=== PATIENT | female | born 1990 | race Caucasian/White ===

== ENCOUNTER 2025-08-02 14:10 | Emergency (ER) | payer MEDICAID, SELFPAY ==
[2025-08-02 14:12] VITALS: BP 155/88; PULSE 78; RESP 18; TEMP 36.5; O2SAT 99; BMI 33.3
--- NOTE | 2025-08-02 15:09 | RAD_ITS ---
PROCEDURE: TIBIA FIBULA 2 VIEWS 08/02/2025 REASON FOR EXAM: INJURY/PAIN TECHNIQUE: Procedure Code: RADTF Modality: DX Procedure: TIBIA FIBULA 2 VIEWS Laterality: Right COMPARISON: None. FINDINGS: BONES: No acute fracture or focal osseous lesion. JOINTS: No dislocation. The joint spaces are normal. SOFT TISSUES: The soft tissues are unremarkable. RAD/Tibia & Fibula 2 Views IMPRESSION: NEGATIVE TIBIA AND FIBULA. Reading Location: [id number]
--- NOTE | 2025-08-02 15:12 | EDS_ITS ---
HPI History of Present Illness Chief Complaint: Lower Extremity Injury Informant: patient Narrative Narrative: Patient is a 34-year-old female with history of anxiety presenting with pain and bruising to her right lower extremity. She notes it is painful slightly yesterday and has become more painful today especially with trying to walk on it. 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 She denies any injury to her leg so she would not know why she has a bruise. She denies any swelling of her leg. Associate numbness or tingling. Has history of DVT or PE. Denies any shortness of breath or difficulty breathing. Took Tylenol with no relief. Came in for further evaluation. [facility] Medical History Anxiety Home Medications ?Medication ?Instructions ?Recorded ?Last Taken ?Type ibuprofen 600 mg tablet 600 mg PO Q6H PRN PRN pain # 20 08/02/25 Unknown Rx TABLETS Allergy/AdvReac Type Severity Reaction Status Date / Time No Known Allergies Allergy Verified 08/02/25 14:12 Family History Mother Cancer Social History household members: spouse and family current occupational status: employed Smoking Status: Former smoker ROS ROS ED Constitutional Constitutional ED: Denies chills or fever(s) Cardiovascular Cardiovascular: Denies chest pain Respiratory/Chest Respiratory/Chest: Denies dyspnea Musculoskeletal Musculoskeletal: Reports other Details: Right lower anterior arceo pain Integumentary Reports other Details: Bruising and tenderness to the right anterior arceo Neurologic Neurologic: Denies paresthesias or weakness Psychiatric Psychiatric: Reports anxiety Hematologic/Lymphatic Hematologic/Lymphatic: Denies easy bleeding or easy bruising EXAM Physical Exam Const Vital Signs: 08/02/25 14:12 Temperature 97.7 F L Temperature Source Temporal Pulse Rate 78 Respiratory Rate 18 Blood Pressure 155/88 H Blood Pressure Mean 110 Pulse Ox 99 Oxygen Delivery Method Room Air Positive well nourished and well developed General Appearance ED: well developed and NAD HEENT Reports moist mucous membranes Chest Wall inspection of chest normal Resp normal respiratory effort and clear to auscultation bilaterally Cardio regular rate and regular rhythm Cardio Narrative: 2+ DP pulse on the right, no pedal edema appreciated Extremity normal to inspection and full ROM Extremity Narrative: Mild tenderness palpation with associated early ecchymosis to the right anterior arceo, distal aspect. The tenderness associates with the area of ecchymosis. No deformity present. No ankle tenderness to palpation. Compartments are soft. No palpable cords. No tenderness palpation of the ankle or foot on the right. Normal Hollingsworth test. General Extremety ED: Negative for edema General Extremity: Negative for edema Neuro oriented x3, moves all extremities and no sensory deficits noted Sensorium / Orientation: alert Motor Exam: Negative for general weakness Psych mental status grossly normal Skin Skin Narrative: No abrasion or laceration appreciated. Approximately 4 cm slightly irregular area darkening consistent with an early contusion/ecchymosis. No overlying erythema or cellulitic changes. No fluctuance appreciated. MDM MDM MDM Narrative Medical decision making narrative: Patient evaluated for 2 days of worsening right lower anterior arceo pain. Has a ssociated bruising. Differential include soft tissue contusion, shinsplints, stress fracture. She does not have any posterior tenderness palpable cords or risk factors for DVT low suspicion for DVT. Do not think she needs D-dimer or duplex. X-ray obtained of the tib-fib and reviewed by myself as well as radiology. Does not show any acute process. Patient given a dose of naproxen in the emergency room. Patient will be discharged home with conservative therapy including NSAIDs, Dhruv wrap, rest and ice/elevation. We given referral for primary care doctor she has not seen a primary care doctor in 10 years as well as with orthopedics in case this becomes more persistent issue when she requires symptoms of physical therapy or further intervention. Counseled on return precautions. Discharged home in stable condition. Radiography Diagnostic Testing: Clinical Impression(s) from Imaging Studies Tibia/Fibula X-Ray 08/02/25 15:09 IMPRESSION: NEGATIVE TIBIA AND FIBULA. Reading Location: [facility] Discharge Plan Triage Chief Complaint: Lower Extremity Injury ED Provider: Cristal Alcaraz Dx/Rx/DC Orders Clinical Impression: Pain in right arceo Instructions: ED Muscle Strain, Extremity Prescriptions: New ibuprofen 600 mg tablet 600 mg PO Q6H PRN PRN (Reason: pain) Qty: 20 0RF Primary Care Provider: Care Physician,No Primary Referrals: Rashaad Vásquez DO [Med Staff - Active Staff, Orthopedics] Care Physician,No Primary [Primary Care Provider, Medical] Nikkie Pagan, CAT SCAN TECH-C [Sam[facility], [facility]] Activity Restrictions/Additional Instructions: Ice, elevate and wear Dhruv wrap as needed for pain. Try to take it easy. Take NSAIDs as prescribed for pain and inflammation. Your x-ray does not show any signs of stress fracture however you could have microtears to the muscles the front of the arceo consistent with shinsplints or possibly deep bruise/contusion. Please follow-up with family doctor or orthopedics especially if the symptoms persist or worsen. Print Language: Amharic Disposition Disposition: Home, Self Care
--- OUTSIDE RECORDS SUMMARY | 2025-08-02 16:04 | XMS RPT_ITS | CCD ---
Author Organization [facility] Care Team Providers Care Well Reactivator Operator Name Role Phone Yanes, Cassandra Unavailable Unavailable YANES D.O., CASSANDRA M Unavailable Unavail able Yanes, Cassandra Unavailable Unavailable Yanes, Cassandra Unavailable Unavailable YANES D.O., CASSANDRA M Unavailable Unavail able Yanes, Cassandra Unavailable Unavailable YANES D.O., CASSANDRA M Unavailable Unavail able Yanes, Cassandra Unavailable Unavailable Roter, Tevin Unavailable Unavailable KIRVEN, CECILIA LSEA Unavailable Unavaila ble BARCLAY, GIL P Unavailable Unavailable KIRVEN, CECILIA LESA Unavailable Unavaila ble KIRVEN, CECILIA LESA Unavailable Unavaila ble KIRVEN, CECILIA LESA Unavailable Unavaila ble KIRVEN, CECILIA LESA Unavailable Unavaila ble KIRVEN, CECILIA S Unavailable Unavailable KIRVEN, CECILIA S Unavailable Unavailable KIRVEN, CECILIA S Unavailable Unavailable IMCA Unavailable Unavailable IMCA Unavailable Unavailable IMCA Unavailable Unavailable KIRVEN, CECILIA S Unavailable Unavailable MISSY, SNEHAL Unavailable Unavailable KIRVEN, CECILIA S Unavailable Unavailable IMCA Unavailable Unavailable IMCA Unavailable Unavailable BARCLAY, GLI Unavailable Unavailable KIRVEN, CECIILA S Unavailable Unavailable IMCA Unavailable Unavailable [facility] Unavailable Unavailable PROVIDER, UNKNOWN Unavailable Unavailable Mickey, Brook Unavailable Unavailable Garcia, Bennett Unavailable Unavailable RAIN GAMBOA (BLAIRE) Unavailable Unavai lable Unavailable Primary Care Provider GALINA Gupta Attending Unavailable Allergies Allergy Classification Reported Allergen(s) Allergy Type Date of Onset Reaction(s) Facility (5 sources) morphine; Translations: [MORPHINE] Drug Allergy 8 Shortness of breath [facility] Repository (2 sources) NO KNOWN ALLERGIES; Translations: [NO KNOWN ALLERGIES] Propensity to adverse reactions to drug (disorder) [facility] Repository Problems Active Problems Problem Classification Problem Date Documented Da te Episodic/Chronic Allergic reactions (2 sources) Allergy status to narcotic agent status; Translations: [Allergy status to narcotic agent status] Onset: 02-27-2018 Episodic Anxiety disorders (2 sources) Anxiety disorder, unspecified; Translations: [Anxiety disorder, unspecified] Onset: 01-30-2018 Chronic Diseases of white blood cells (2 sources) Elevated white blood cell count, unspecified; Translations: [Elevated white blood cell count, unspecified] Onset: 01-30-2018 Chronic External Injury - Adverse effects of medical drugs (2 sources) Adverse effect of other opioids, initial encounter; Translations: [Adverse effect of other opioids, initial encounter] Onset: 01-30-2018 Menstrual disorders (4 sources) Irregular menstruation, unspecified; Translations: [Dysmenorrhea, unspecified] Onset: 12-15-2017 Chronic Other endocrine disorders (1 source) Hyperfunction of pituitary gland, unspecified; Translations: [Hyperfunction of pituitary gland, unspecified] Onset: 12-15-2017 Chronic Other endocrine disorders (2 sources) Hyperprolactinemia; Translations: [Hyperprolactinemia ] Onset: 01-01-2018 08-25-2022 Chronic Other gastrointestinal disorders (2 sources) Irritable bowel syndrome without diarrhea; Translations: [Irritable bowel syndrome without diarrhea] Onset: 01-30-2018 Chronic Residual codes; unclassified (2 sources) Viral syndrome; Translations: [Other general symptoms and signs] 09-01-2023 Episodic Residual codes; unclassified (2 sources) Other general symptoms and signs; Translations: [Other general symptoms and signs] Onset: 09-01-2023 Episodic Substance-related disorders (2 sources) Nicotine dependence, chewing tobacco, uncomplicated; Translations: [Nicotine dependence, chewing tobacco, uncomplicated] Onset: 02-27-2018 Chronic Unclassified (1 source) Unknown / UNK(Unknown) Onset: 10-24-2017 Past or Other Problems Problem Classification Problem Date Documented Da te Episodic/Chronic Abdominal pain (10 sources) Right upper quadrant pain; Translations: [Unspecified abdominal pain] Onset: 02-16-2017 08-25-2022 Episodic Immunizations and screening for infectious disease (1 source) Encounter for screening for human papillomavirus (HPV); Translations: [Encounter for screening for human papillomavirus (HPV)] Onset: 10-24-2017 Episodic Medical examination/evaluation (1 source) Encounter for gynecological examination (general) (routine) without abnormal findings; Translations: [Encounter for gynecological examination (general) (routine) without abnormal findings] Onset: 10-24-2017 Episodic Nausea and vomiting (2 sources) Nausea with vomiting, unspecified; Translations: [Nausea with vomiting, unspecified] Onset: 01-30-2018 Episodic Other female genital disorders (1 source) Other specified conditions associated with female genital organs and menstrual cycle; Translations: [Other specified conditions associated with female genital organs and menstrual cycle] Onset: 10-24-2017 Episodic Other gastrointestinal disorders (2 sources) Diarrhea, unspecified; Translations: [Diarrhea, unspecified] Onset: 01-30-2018 Episodic Spondylosis; intervertebral disc disorders; other back problems (2 sources) Low back pain; Translations: [Low back pain] Onset: 01-30-2018 Episodic Superficial injury; contusion (1 source) Injury of conjunctiva and corneal abrasion without foreign body, left eye, initial encounter; Translations: [Injury of conjunctiva and corneal abrasion without foreign body, left eye, initial encounter] Onset: 01-20-2018 Episodic Unclassified (3 sources) Abnormal findings on diagnostic imaging of other specified body structures; Translations: [Encounter for screening for malignant neoplasm of cervix] Onset: 10-24-2017 Episodic Unclassified (2 sources) Family history of other endocrine, nutritional and metabolic diseases; Translations: [Family history of endo, nutritional and metabolic diseases] Onset: 01-30-2018 Episodic Unclassified (1 source) Encounter for gynecological examination (general) (routine) without abnormal findings Onset: 10-24-2017 Results Test Name Value Interpretation Reference Range Facility ED Nursing Noteon 09-01-2023 ED Nursing Note Pt comes to ED due t o cough, runny nose x3 days pt states cough has been increasing in severity today. [facility] ED Provider Noteon ED Provider Note EMERGENCY DEPARTMENT ENCOUNTER Pt Name: Juan A Montanez Birthdate 1990 Date of evaluation: 09/01/2023 ED Provider: Galina Thomas DO CHIEF COMPLAINT Chief Complaint Patient presents with Flu Symptoms HISTORY OF PRESENT ILLNESS (Location/Symptom, Timing/Onset, Context/Setting, Quality, Duration, Modifying Factors, Severity) Note limiting factors. I wore appropriate PPE for the entirety of this encounter. HPI Juan A Montanez is a 32 y.o. female who presents to the emergency department with complaint of congestion, sore throat, cough, and intermittent chills for last 5 days. Sick contacts with similar symptoms. sick with similar symptoms. Denies chest pain or shortness of breath. Denies GI symptoms. Nursing Notes were reviewed. Limitations to history: None Outside historians: None REVIEW OF SYSTEMS Review of Systems Negative except per HPI PAST MEDICAL HISTORY Past Medical History: Diagnosis Date Anxiety IBS (irritable bowel syndrome) age 16 SURGICAL HISTORY Past Surgical History: Procedure Laterality Date WISDOM TOOTH EXTRACTION 2013 CURRENT MEDICATIONS There are no discharge medications for this patient. ALLERGIES Morphine FAMILY HISTORY Family History Problem Relation Name Age of Onset No Known Problems Father Other ([id number]) Mother polycystic ovaries, fibroids SOCIAL HISTORY Social History Socioeconomic History Marital status: Single Tobacco Use Smoking status: Never Smokeless tobacco: Current Substance and Sexual Activity Alcohol use: Yes Drug use: No SCREENINGS PHYSICAL EXAM ED Triage Vitals Temp Pulse Resp BP -- -- -- -- SpO2 Temp src Heart Rate Source Patient Position -- -- -- -- BP Location FiO2 (%) -- -- Physical Exam HENT: mucous membranes moist, OP erythematous without exudate/ELECTRONICS ASSEMBLER/mass, no trismus/drooling, sublingual space soft, no submandibular/submental edema or induration. Neck: no cervical LAD/full neck AROM, no TTP with laryngeal manipulation, no stridor CV: RRR, no murmurs Pulm: CTA BL DIAGNOSTIC RESULTS None EMERGENCY DEPARTMENT COURSE and DIFFERENTIAL DIAGNOSIS/MDM: Vitals: Vitals: 09/01/23 0631 BP: 137/79 Pulse: 86 Resp: 19 Temp: 36.6 ?C (97.9 ?F) SpO2: 100% 32-year-old female presenting with flulike illness for 5 days. Sick contacts with similar symptoms. Vital signs stable, afebrile. Saturating well on room air. Nontoxic-appearing patient. Resting comfortably. No increased work of breathing. Lungs clear bilaterally. Symptomology likely viral illness. Given endorsed symptoms, clear lungs, nontoxic appearance with likely viral etiology, chest x-ray not warranted. Patient reassured and advised to take qtbl-[id number] NyQuil/DayQuil. Patient expressed understanding and patient discharged. PROCEDURES: Unless otherwise noted below, none Procedures FINAL IMPRESSION 1. Flu-like symptoms DISPOSITION Discharge 09/01/2023 06:40:49 AM [facility] [address] [facility] [address] DISCHARGE MEDICATIONS: There are no discharge medications for this patient. (Comment: Please note this report has been produced using speech recognition software and may contain errors related to that system including errors in grammar, punctuation, and spelling, as well as words and phrases that may be inappropriate. If there are any questions or concerns please feel free to contact the dictating provider for clarification.) Galina Thomas DO (electronically signed) Emergency Medicine Provider Galina Thomas DO 09/01/23 [id number] [facility] CNOVon 05-18-2018 CNOV Office Visit ([facility]) -TARIKJUAN A Hood ([id number]) 1990 FDate Time Provider Department05/18/18 5:00 PM RAIN GAMBOA) CASANDRA During your visit today, we recorded the following information about you: Temperature Pulse Respiration Blood pressure 97.8 degrees 64/minute 16/minute 108/65 Weight Last Period 93.1 kg 05/02/18Rain Gamboa PA-C, PA 05/18/2018 5:36 PM Signed05/18/2018Patient presents with:Ear Pain: x2-3 daysSUBJECTIVE: This is a 27 year old that is here today for 2-3 day history ofleft ear canal tenderness that started after she tried to clean her ear with aq-tip. She also cannot hear out of this ear well.No dizziness, vertigo, changes in hearing, or drainage.She denies any recent swimming or use of q-tips, ear plugs, or ear buds.No recent sinus, allergy or URI symptoms.No cough, n/v/d, ROACH, or rash.Denies fever, chills, sweats, or fatigue.Patient denies wheezing, shortness of breath, increased WOB, or chest pain.No other URI symptoms.No other sick symptoms.Pain on scale of 0-10 with 0 being no pain and 10 being greatest pain: 4Nothing makes the symptoms better. Nothing makes them worse.Self-treatment:. noneThe severity is mild and the symptoms are not improving.The patient did not have a similar problem in the last 3 months.The patient did not take any antibiotics in the last 3 months.Barriers to learning: none.Reviewed meds, OTCs, herbals or supplements.Reviewed allergies, medications, and past medical history..PAST MEDICAL HISTORYDiagnosis Date- AnxietyALLERGIES MorphineMEDICATIONSCurrent Outpatient Prescriptions:dicyclomine (BENTYL) 20 mg tablet Take 20 mg by mouth every 6 hours.citalopram (CELEXA) 40 mg tablet Take 40 mg by mouth once daily.hydrOXYzine HCl (ATARAX) 10 mg tablet Take 10 mg by mouth every 4 hours asneeded.Naproxen Sodium 550 mg tablet Take 1 tablet by mouth twice daily with meals.No current facility-administered medications for this visit.Medications and allergies reviewed by this provider.SOCIAL HISTORYSocial History Marital status: Single Spouse name: Years of education: Number of children:Occupational HistoryOccupation Employer CommentKFCSocial History Main Topics Smoking status: Never Smoker Smokeless tobacco: Current User Types: Chew Alcohol use: Yes Comment: social Drug use: No Sexual activity: Yes Partners with: Female control/protection: NoneOther Topics ConcernMilitary Service NoBlood Transfusions NoCaffeine Concern Yes Comment:2 energyOccupational Exposure NoHobby Hazards NoSleep Concern NoStress Concern Yes Comment:(1-5) = 3Weight Concern NoSpecial Diet NoBack Care NoExercise NoBike Helmet YesSeat Belt YesSelf-Exams NoREVIEW OF SYSTEMSReview of SystemsROS: constitutional-neg, heent-ear ache, heart-neg, respiratory-neg except asnoted above, skin-neg, lymph-neg, neuro-neg, - All systems neg except as notedabove in HPI.OBJECTIVE:BP 108/65 Pulse 64 Temp 36.6 ?C (97.8 ?F) (Tympanic) Resp 16 Wt93.1 kg (205 lb 4.8 oz) LMP 05/02/2018 (Approximate) BMI 35.24 kg/m? .Vital signs reviewed by this provider.Physical ExamAAOx3, no acute distress, patient is pleasant, well groomed, dressedappropriately.General: WD, WN, NAD, alert.HEENT: No facial erythema or swelling.Eyes: PERRL. EOMI. No erythema or discharge.-Ears:Left: TM pearly muniz with light reflex. Ear canal not red or swollen. No tragustenderness to pumping. No pain with manipulation of the auricle. No mastoid orpreauricular tenderness, edema, or erythema.Left cerumen impactionWax removed with water irrigation by Christine hookEar exam post wax removal: Right: TM pearly muniz with light reflex. Ear canalis slight erythematous and tender to speculum. No tragus tenderness to pumping.No pain with manipulation of the auricle. No mastoid or preauriculartenderness, edema, or erythema.-Nose-nasal mucosa pink and no discharge/polyps, nasal septum midline.-Throat: pharynx pink with no edema/mass/exudate/erythema, buccal mucosa pinkand moist with no lesions.Head:no maxillary tenderness noted upon palpation.Neck: no masses or lymphadenopathy.Chest: CTA bilaterally with equal breath sounds; good air exchange throughout.No wheezing, rhonchi, or crackles; no retractions, tripoding, or nasal flaringnoted.Heart: RRR, no murmur, rub, or gallop..ASSESSMENT/PLAN:1. Impacted cerumen of right ear - ICD9: 380.4, ICD10: H61.21 (primarydiagnosis)- Wax removed with water flushing. Tolerated well.2. Acute otitis externa of right ear, unspecified type - ICD9: 380.10, ICD10:H60.501- HVRIGQPH-OXKXFVJYT-BJOPTYKAC 3.5 MG-10,000 UNIT/ML-1 % EAR DROPS,SUSPEncourage fluids, rest.Tylenol and Motrin for pain and fever. If you have a fever rotate between theTylenol and Motrin every 3 hours.Take entire course of Antibiotics.Call PCP if sx worsen or no better.If symptoms worsen, or new symptoms develop go to ER.If you have worsening of breathing or breathing changes- go to ER.If you have persistent fever unrelieved by Tylenol/Motrin- go to the ER.Discussed all red flag symptoms and reasons to go to ERNo further questions.Follow up as needed.The patient verbalizes understanding and is in agreement with plan of care.Barriers to learning: none.ABDIRIZAK Garcia-Gal Gamboa PA-C, PA 05/18/2018 5:07 PM SignedASSESSMENT/PLAN:1. Impacted cerumen of right ear -- Wax removed with water flushing. Tolerated well.2. Acute otitis externa of right ear, unspecified type -- ESBDOFKW-ENMLSEZJG-HKMTWVOZU 3.5 MG-10,000 UNIT/ML-1 % EAR DROPS,SUSPEncourage fluids, rest.Tylenol and Motrin for pain and fever. If you have a fever rotate between theTylenol and Motrin every 3 hours.Take entire course of Antibiotics.Call PCP if sx worsen or no better.If symptoms worsen, or new symptoms develop go to ER.If you have worsening of breathing or breathing changes- go to ER.If you have persistent fever unrelieved by Tylenol/Motrin- go to the ER.Discussed all red flag symptoms and reasons to go to ERNo further questions.Follow up as needed.The patient verbalizes understanding and is in agreement with plan of care.Barriers to learning: none.ABDIRIZAK Garcia-CReferring Provider: SELF [[id number]]Allergies As of Date: 05/18/2018 Noted Allergy ReactionMORPHINE 02/06/2018 12 - Shortness of BreathDate Reviewed: 05/18/2018Reviewed by: Ana Grigsby Ma - Fully AssessedReason for Visit: Ear Pain [817] Cmt: x2-3 daysPrimary Visit Diagnosis:Impacted cerumen of right ear [H61.21] Other Visit Diagnosis:Acute otitis externa of right ear, unspecified type [H60.501]Order(s):neomycin-po lymyxin-hydrocortisone (CORTISPORIN) 3.5-10,000-1 mg/mL-unit/mL-% otic suspensionUse 3 Drops in the left ear three times daily for 7 days.Disp: 1 BottleRfl: 0Prescriptions as of 05/18/2018 Sig: DICYCLOMINE 20 MG TABLET Take 20 mg by mouth every 6 h* CITALOPRAM 40 MG TABLET Take 40 mg by mouth once mateo* HYDROXYZINE HCL 10 MG TABLET Take 10 mg by mouth every 4 h* NAPROXEN SODIUM 550 MG TABLET Take 1 tablet by mouth twice * LKQLYIZV-LBZKPHLCQ-KEDULXVNC * Use 3 Drops in the left ear t*Problem List As Of Date 05/18/2018 Noted Resolved Hyperprolactinemia (HCC) [E22.1] INVALID FOR* Obesity, Class I, BMI 30-34.9 E66.9 [E66.9] INVALID FOR* Other instructions from your clinician: ASSESSMENT/PLAN: 1. Impacted cerumen of right ear - - Wax removed with water flushing. Tolerated well. 2. Acute otitis externa of right ear, unspecified type - - RNERWCUR-XYWSSPQKU-CJWEXORJO 3.5 MG-10,000 UNIT/ML-1 % EAR DROPS,SUSP Encourage fluids, rest. Tylenol and Motrin for pain and fever. If you have a fever rotate between the Tylenol and Motrin every 3 hours. Take entire course of Antibiotics. Call PCP if sx worsen or no better. If symptoms worsen, or new symptoms develop go to ER. If you have worsening of breathing or breathing changes- go to ER. If you have persistent fever unrelieved by Tylenol/Motrin- go to the ER. Discussed all red flag symptoms and reasons to go to ER No further questions. Follow up as needed. The patient verbalizes understanding and is in agreement with plan of care. Barriers to learning: none. ABDIRIZAK Garcia-CPrescriptions ordered this encounter Disp Refills Start End NIWQQFTE-INBIDALMT-UVVCSVWDK 3.5 MG-* 1 Madhu* 0 05/18/2018 05/25/2018 Route: LEFT EAR Sig: Use 3 Drops in the left ear three times daily for 7 days. Status:Closed by RAIN GAMBOA on 05/18/18 Normal [facility] PROGRESSon 05-18-2018 Protein HNO ID: [id number] thor: Rain Miranda (ShahabC) Terry Gamboaice: (none)Author Type: Physician AssistantType: Progress NotesFiled: 05/18/2018 5:36 PMNote Text:05/18/2018Patient presents with:Ear Pain: x2-3 daysSUBJECTIVE: This is a 27 year old that is here today for 2-3 day historyof left ear canal tenderness that started after she tried to clean her earwith a q-tip. She also cannot hear out of this ear well.No dizziness, vertigo, changes in hearing, or drainage.She denies any recent swimming or use of q-tips, ear plugs, or ear buds.No recent sinus, allergy or URI symptoms.No cough, n/v/d, ROACH, or rash.Denies fever, chills, sweats, or fatigue.Patient denies wheezing, shortness of breath, increased WOB, or chestpain.No other URI symptoms.No other sick symptoms.Pain on scale of 0-10 with 0 being no pain and 10 being greatest pain: 4Nothing makes the symptoms better. Nothing makes them worse.Self-treatment:. noneThe severity is mild and the symptoms are not improving.The patient did not have a similar problem in the last 3 months.The patient did not take any antibiotics in the last 3 months.Barriers to learning: none.Reviewed meds, OTCs, herbals or supplements.Reviewed allergies, medications, and past medical history..PAST MEDICAL HISTORYDiagnosis Date- AnxietyALLERGIES MorphineMEDICATIONSCurrent Outpatient Prescriptions:dicyclomine (BENTYL) 20 mg tablet Take 20 mg by mouth every 6 hours.citalopram (CELEXA) 40 mg tablet Take 40 mg by mouth once daily.hydrOXYzine HCl (ATARAX) 10 mg tablet Take 10 mg by mouth every 4 hours asneeded.Naproxen Sodium 550 mg tablet Take 1 tablet by mouth twice daily withmeals.No current facility-administered medications for this visit.Medications and allergies reviewed by this provider.SOCIAL HISTORYSocial History Marital status: Single Spouse name: Years of education: Number of children:Occupational HistoryOccupation Employer CommentKFCSocial History Main Topics Smoking status: Never Smoker Smokeless tobacco: Current User Types: Chew Alcohol use: Yes Comment: social Drug use: No Sexual activity: Yes Partners with: Female control/protection: NoneOther Topics ConcernMilitary Service NoBlood Transfusions NoCaffeine Concern Yes Comment:2 energyOccupational Exposure NoHobby Hazards NoSleep Concern NoStress Concern Yes Comment:(1-5) = 3Weight Concern NoSpecial Diet NoBack Care NoExercise NoBike Helmet YesSeat Belt YesSelf-Exams NoREVIEW OF SYSTEMSReview of SystemsROS: constitutional-neg, heent-ear ache, heart-neg, respiratory-neg exceptas noted above, skin-neg, lymph-neg, neuro-neg, - All systems neg exceptas noted above in HPI.OBJECTIVE:BP 108/65 Pulse 64 Temp 36.6 ?C (97.8 ?F) (Tympanic) Resp 16 Wt 93.1 kg (205 lb 4.8 oz) LMP 05/02/2018 (Approximate) BMI 35.24kg/m? . Vital signs reviewed by this provider.Physical ExamAAOx3, no acute distress, patient is pleasant, well groomed, dressedappropriately.General: WD, WN, NAD, alert.HEENT: No facial erythema or swelling.Eyes: PERRL. EOMI. No erythema or discharge.-Ears:Left: TM pearly muniz with light reflex. Ear canal not red or swollen. Notragus tenderness to pumping. No pain with manipulation of the auricle. Nomastoid or preauricular tenderness, edema, or erythema.Left cerumen impactionWax removed with water irrigation by Christine hookEar exam post wax removal: Right: TM pearly muniz with light reflex. Earcanal is slight erythematous and tender to speculum. No tragus tendernessto pumping. No pain with manipulation of the auricle. No mastoid orpreauricular tenderness, edema, or erythema.-Nose-nasal mucosa pink and no discharge/polyps, nasal septum midline.-Throat: pharynx pink with no edema/mass/exudate/erythema, buccal mucosapink and moist with no lesions.Head:no maxillary tenderness noted upon palpation.Neck: no masses or lymphadenopathy.Chest: CTA bilaterally with equal breath sounds; good air exchangethroughout. No wheezing, rhonchi, or crackles; no retractions, tripoding,or nasal flaring noted.Heart: RRR, no murmur, rub, or gallop..ASSESSMENT/PLAN:1. Impacted cerumen of right ear - ICD9: 380.4, ICD10: H61.21 (primarydiagnosis)- Wax removed with water flushing. Tolerated well.2. Acute otitis externa of right ear, unspecified type - ICD9: 380.10,ICD10: H60.501- QHHRAETS-VOQEFMACY-VPVPBENLX 3.5 MG-10,000 UNIT/ML-1 % EAR DROPS,SUSPEncourage fluids, rest.Tylenol and Motrin for pain and fever. If you have a fever rotate betweenthe Tylenol and Motrin every 3 hours.Take entire course of Antibiotics.Call PCP if sx worsen or no better.If symptoms worsen, or new symptoms develop go to ER.If you have worsening of breathing or breathing changes- go to ER.If you have persistent fever unrelieved by Tylenol/Motrin- go to the ER.Discussed all red flag symptoms and reasons to go to ERNo further questions.Follow up as needed.The patient verbalizes understanding and is in agreement with plan ofcare.Barriers to learning: none.Rain Gamboa PA-C [facility] CR Abdomen APon 02-27-2018 CR Abdomen AP Patient Name: JUAN A MONTANEZ Diagnostic Radiology Exam Date/Time 02/26/2018 23:44:28 EDT Exam CR Abdomen AP Ordering Physician TEVIN BELL Accession Number [id number] CPT4 Codes 93225 () Reason For Exam RUQ sharp pain Report Abdomen KUB Clinical: Right upper quadrant pain Two supine views of the abdomen were obtained. COMPARISON: November 21, 2007 abdomen series exam Moderate amount of stool is seen within the distribution of the colon. The bowel gas pattern appears nonobstructive in appearance. No mass effect or organomegaly is identified. Osseous structures appear grossly intact. Small calcification of the left lower quadrant, suggesting a likely phlebolith. Report Dictated on Final Dictating Physician: CRYSTAL SANON Signed Date and Time: 02/26/2018 11:48 pm Signed by: CRYSTAL SANON Transcribed Date and Time: 02/26/2018 11:49 [facility] CNOVon 02-16-2018 CNOV Office Visit (AGOBGRN) --JUAN A MONTANEZ ([id number]) 1990 FDate Time Provider Department02/16/18 2:15 PM CECILIA FERNANDEZ During your visit today, we recorded the following information about you: Blood pressure Weight Height Last Period 110/72 91.3 kg 1.626 m 02/01/18kamlesh Trimble CMA 02/16/2018 2:33 PM SignedFollowing up on ultrasound from [facility]. Manny Babb MD 02/16/2018 3:14 PM Signed? Please call the office before going to the hospital.? If you are , go to the ER at the [facility] [place]. Do not go [facility] ER?s ([place], [place] or [place]).? If you need to go to an ER and cannot or will not go downtown, please use oneof [facility]?s ER?s (not [facility], [place] or [facility]).Cecilia Fernandez MD 02/16/2018 3:14 PM SignedJuan A Montanez is a 27 year old female who presents with a chief complaint ofFollow Up Tests Results ([facility]ENTERShe presents today to discuss issues she's been having with dysmenorrhea. Shenotes that she has been having pain the day prior to the onset of her mensessevere enough to require a trip to the emergency department. Recent ultrasounddemonstrates presence of a superior uterine fibroid partially 1.5 cm in size.She's not been having any heavy bleeding.Obstetric History T0 L0 SAB0 TAB0 Ectopic0 Multiple0 Live [id number] rgen Reactions- Morphine Shortness of BreathCurrent Outpatient Prescriptions:dicyclomine (BENTYL) 20 mg tablet Take 20 mg by mouth every 6 hours.citalopram (CELEXA) 40 mg tablet Take 40 mg by mouth once daily.hydrOXYzine HCl (ATARAX) 10 mg tablet Take 10 mg by mouth every 4 hours asneeded.Naproxen Sodium 550 mg tablet Take 1 tablet by mouth twice daily with meals.No current facility-administered medications for this visit.Review of SystemsConstitutional: NegativeGastrointestinal: NegativeGenitourinary: NegativePhysical ExamBP 110/72 Ht 5' 4ANDquot; (1.63m) Wt 201 lb 3.2 oz (91.3kg) LMP 02/01/2018 BMI 34.52 kg/(m2).General: No Acute Distress, Well nourished, Well developed, No obviousdeformities and Alert/Oriented x 3Mood/Affect: NormalASSESSMENT/PLAN:1. Dysmenorrhea - ICD9: 625.3, ICD10: N94.6We discussed various options for treatment. We did discuss essential etiologiesfor her pain including the fibroid which is unlikely given its size. Wediscussed simple dysmenorrhea versus possible endometriosis. At this time wediscussed options for treatment including oral contraceptives which she isreluctant to consider versus anti-inflammatories. We did discuss thatendometriosis can only be confirmed by laparoscopic surgery with biopsy. Atthis time she is going to try some anti-inflammatories and let me know how shedoes. I spent 20 minutes in the visit, with more than 50% of the xmzjaywst-gw-sqsc time of the visit in counseling / coordination of care.Cecilia Fernandez, MDReferring Provider: SELF [200]Allergies As of Date: 02/16/2018 Noted Allergy ReactionMORPHINE 02/06/2018 12 - Shortness of BreathDate Reviewed: 02/16/2018Reviewed by: Cecilia Fernandez - Fully AssessedReason for Visit: Follow Up Tests Results [770] Cmt: summaPrimary Visit Diagnosis:Dysmenorrhea [N94.6]Order(s):Naproxen Sodium 550 mg tabletTake 1 tablet by mouth twice daily with meals.Disp: 60 tabletRfl: 2Prescriptions as of 02/16/2018 Sig: DICYCLOMINE 20 MG TABLET Take 20 mg by mouth every 6 h* CITALOPRAM 40 MG TABLET Take 40 mg by mouth once mateo* HYDROXYZINE HCL 10 MG TABLET Take 10 mg by mouth every 4 h* NAPROXEN SODIUM 550 MG TABLET Take 1 tablet by mouth twice *Medication notes this encounter DICYCLOMINE 20 MG TABLET >> Carlton Trimble CMA 02/16/2018 2:32 PM >> ATILIO GRIFFIN [place] MonFeb 16, 2018 2:32 PM CITALOPRAM 40 MG TABLET >> Carlton Trimble CMA 02/16/2018 2:31 PM >> ATILIO GRIFFIN [place] MonFeb 16, 2018 2:31 PM CITALOPRAM 40 MG TABLET >> Carlton Trimble CMA 02/16/2018 2:31 PM >> ATILIO GRIFFIN [place] MonFeb 16, 2018 2:31 PM >> Carlton Trimble CMA 02/16/2018 2:31 PM >> ATILIO GRIFFIN [place] MonFeb 16, 2018 2:31 PM duplicate DICYCLOMINE 10 MG CAPSULE >> Carlton Trimble CMA 02/16/2018 2:32 PM >> ATILIO GRIFFIN [place] MonFeb 16, 2018 2:32 PM Not taking FAMOTIDINE 20 MG TABLET >> Carlton Trimble CMA 02/16/2018 2:32 PM >> ATILIO GRIFFIN [place] MonFeb 16, 2018 2:32 PM Not taking ONDANSETRON HCL 4 MG TABLET >> Carlton Trimble CMA 02/16/2018 2:32 PM >> ATILIO GRIFFIN [place] MonFeb 16, 2018 2:32 PM Not taking CLOTRIMAZOLE-BETAMETHASONE 1 %-0.05 % TOPICAL CREAM >> Carlton Trimble CMA 02/16/2018 2:31 PM >> ATILIO GRIFFIN [place] MonFeb 16, 2018 2:31 PM Not using FLUCELVAX QUAD 8794-4622 (PF) 60 MCG (15 MCG X 4)/0.5 ML IM SYRINGE >> Carlton Trimble CMA 02/16/2018 2:32 PM >> ATILIO GRIFFIN CAR[place] MonFeb 16, 2018 2:32 PM Received CITALOPRAM 20 MG TABLET >> Carlton Trimble CMA 02/16/2018 2:31 PM >> ATILIO GRIFFIN CAR[place] MonFeb 16, 2018 2:31 PM Not takingProblem List As Of Date 02/16/2018 Noted Resolved Hyperprolactinemia (HCC) [E22.1] INVALID FOR* Obesity, Class I, BMI 30-34.9 E66.9 [E66.9] INVALID FOR* Other instructions from your clinician: ? Please call the office before going to the hospital. ? If you are , go to the ER at the [facility]. Do not go to the outlying ER?s ([place], [place] or [place]). ? If you need to go to an ER and cannot or will not go downtown, please use one of [facility]?s ER?s (not [facility], [place] or [facility]).Visit Notes:>> Carlton Trimble MonFeb 16, 2018 2:33 PM Status: SignedFollowing up on ultrasound from [facility]. ELIAS GrimmPrescriptions ordered this encounter Disp Refills Start End NAPROXEN SODIUM 550 MG TABLET 60 t* 2 02/16/2018 Route: ORAL Sig: Take 1 tablet by mouth twice daily with meals.Medications Discontinued During This Encounter FLUCELVAX QUAD 8830-6176, PF, 60 mcg* 09/23/2017 02/16/2018 Class: Historical Med Sig: Disc: Reason for discontinue is not on file. clotrimazole-betamethasone (LOTRISON* 12/05/2017 02/16/2018 Class: Historical Med Sig: Disc: Reason for discontinue is not on file. ondansetron (ZOFRAN) 4 mg tablet 01/30/2018 02/16/2018 Class: Historical Med Sig: Disc: Reason for discontinue is not on file. famotidine (PEPCID) 20 mg tablet 01/30/2018 02/16/2018 Class: Historical Med Sig: Disc: Reason for discontinue is not on file. dicyclomine (BENTYL) 10 mg capsule 01/30/2018 02/16/2018 Class: Historical Med Sig: Disc: Reason for discontinue is not on file. citalopram (CELEXA) 20 mg tablet 10/08/2017 02/16/2018 Class: Historical Med Route: ORAL Sig: Take 20 mg by mouth once daily. Disc: Reason for discontinue is not on file. citalopram (CELEXA) 40 mg tablet 02/06/2018 02/16/2018 Class: Historical Med Sig: Disc: Reason for discontinue is not on file.Disposition: Return in about 6 months (around 08/18/2018).Follow-up and Disposition History RecordedEncounter Number: [id number] Status:Closed by CECILIA FERNANDEZ MD on 02/16/18 [facility] PROGRESSon 02-16-2018 PROGRESS HNO ID: [id number] thor: Cecilia Hernandez: (none)Author Type: PhysicianType: Progress NotesFiled: 02/16/2018 3:14 PMNote Text:Juan A Montanez is a 27 year old female who presents with a chief complaintof Follow Up Tests Results (summa)SUBJECTIVEShe presents today to discuss issues she's been having with dysmenorrhea.She notes that she has been having pain the day prior to the onset of hermenses severe enough to require a trip to the emergency department. Recentultrasound demonstrates presence of a superior uterine fibroid partially1.5 cm in size. She's not been having any heavy bleeding.Obstetric History T0 L0 SAB0 TAB0 Ectopic0 Multiple0 Live Uytkok7JCCJNRXBJLCWLJIHXKSvpb rgen Reactions- Morphine Shortness of BreathCurrent Outpatient Prescriptions:dicyclomine (BENTYL) 20 mg tablet Take 20 mg by mouth every 6 hours.citalopram (CELEXA) 40 mg tablet Take 40 mg by mouth once daily.hydrOXYzine HCl (ATARAX) 10 mg tablet Take 10 mg by mouth every 4 hours asneeded.Naproxen Sodium 550 mg tablet Take 1 tablet by mouth twice daily withmeals.No current facility-administered medications for this visit.Review of SystemsConstitutional: NegativeGastrointestinal: NegativeGenitourinary: NegativePhysical ExamBP 110/72 Ht 5' 4 (1.63m) Wt 201 lb 3.2 oz (91.3kg) LMP 02/01/2018 BMI 34.52 kg/(m2).General: No Acute Distress, Well nourished, Well developed, No obviousdeformities and Alert/Oriented x 3Mood/Affect: NormalASSESSMENT/PLAN:1. Dysmenorrhea - ICD9: 625.3, ICD10: N94.6We discussed various options for treatment. We did discuss essentialetiologies for her pain including the fibroid which is unlikely given itssize. We discussed simple dysmenorrhea versus possible endometriosis. Atthis time we discussed options for treatment including oral contraceptiveswhich she is reluctant to consider versus anti-inflammatories. We diddiscuss that endometriosis can only be confirmed by laparoscopic surgerywith biopsy. At this time she is going to try some anti-inflammatories andlet me know how she does. I spent 20 minutes in the visit, with more than50% of the total hpok-sk-mnrn time of the visit in counseling /coordination of care.Cecilia Fernandez MD [facility] US Transvaginalon 02-12-2018 US Transvaginal Patient Name: JUAN A MONTANEZ Ultrasound Exam Date/Time 02/12/2018 11:26:56 EDT Exam US Transvaginal Ordering Physician CASSANDRA YANES D.O. Accession Number [id number] CPT4 Codes 75713 () Reason For Exam Irregular menstruation, unspecified Report ULTRASOUND PELVIS: CLINICAL INDICATION: Irregular periods LMP: 2-3 weeks ago COMPARISON: none TECHNIQUE: Grayscale transvaginal and color Doppler flow signal imaging performed. FINDINGS: Uterus: Orientation: Anteverted Size: 4.9 x 3.4 x 2.6 cm Endometrium: 5.2 mm Mass: Ill-defined hypoechoic structure near the fundus 1.0 x 1.1 x 1.3 cm. Cervix: No definite mass. The technologist describes cervix as being tortuous of uncertain significance.. Right Ovary: Size: 2.9 x 1.8 x 1.5 cm Mass: none Cyst: Multiple follicles. Color flow/Doppler waveform: normal Left Ovary: Size: 2.9 x 1.9 x 2.2 cm Mass: none Cyst: Numerous small follicles. Color flow/Doppler waveform: normal Cul-de-sac: No free fluid IMPRESSION: Ill-defined hypoechoic structure of the uterine fundus possibly fibroid measuring up to 1.3 cm. This patient may benefit from comparison to outside studies or follow-up or further evaluation. Report Dictated on Final Dictating Physician: MD MENDIOLA JOHN Signed Date and Time: 02/12/2018 11:57 am Signed by: MD MENDIOLA JOHN Transcribed Date and Time: 02/12/2018 11:58 Normal [facility] CT Abdomen/Pelvis w/ Contras ton 01-30-2018 CT Abdomen/Pelvis w/ Contrast Patient Name: JUAN A MONTANEZ CT Exam Date/Time 01/30/2018 04:17:[address] Abdomen/Pelvis w/ IV Contrast (IV Onl Ordering Physician ABDIRIZAK JUSTIN CHARLES G Accession Number [id number] CPT4 Codes 56294 (CT Abdomen/Pelvis w/ IV Contrast (IV Onl), Q9967 () Reason For Exam ABDOMINAL PAIN Report CT of the abdomen and pelvis with intravenous contrast, 01/30/2018. Reason for examination: Abdominal pain. COMPARISON: December 22, 2016. TECHNIQUE: 3 mm axial images were obtained through the abdomen and pelvis following intravenous administration of 75 mL of Isovue-370. No oral contrast was administered. Coronal and sagittal reconstructions were created and reviewed. FINDINGS: There is mild scarring or atelectasis in the lung bases. ABDOMEN: No lesion is identified in the liver, spleen, pancreas, adrenal glands, or kidneys. There is no bowel distention. No lymphadenopathy or abnormal fluid collection is noted. There are a few colonic diverticula. There is no evidence of diverticulitis. There is a small umbilical hernia containing fat. Pelvis: The appendix is noted in the right lower quadrant and appears within normal limits. No mass or lymphadenopathy is noted. No inflammatory process or abnormal fluid collection is identified. IMPRESSION: Mild colonic diverticulosis. No acute process identified. Report Dictated on Workstation: [id number] Final Dictated: 01/30/2018 4:31 am Dictating Physician: MD MAGDALENO JOE M Signed Date and Time: 01/30/2018 4:34 am Signed by: MD MAGDALENO JOE M Transcribed Date and Time: 01/30/2018 4:31 Normal [facility] Comp Metabolic Panelon 01-30 Alanine aminotransferase (ALT) 28 U/L Normal 13-69 [facility] Comment on above: Performed By: #### H EMDF, CMP3, LIPA3 ####The performing lab is in the report. Calcium 9.7 mg/dL Normal 8.4-10.2 [facility] Comment on above: Performed By: #### H EMDF, CMP3, LIPA3 ####The performing lab is in the report. Glucose mass conc 104 mg/dL High 70-100 [facility] Comment on above: Performed By: #### H EMDF, CMP3, LIPA3 ####The performing lab is in the report. Alkaline phosphatase (ALP) 63 U/L Normal 38-126 [facility] Comment on above: Performed By: #### H EMDF, CMP3, LIPA3 ####The performing lab is in the report. Anion gap 10 mmol/L Normal [facility] Comment on above: Performed By: #### H EMDF, CMP3, LIPA3 ####The performing lab is in the report. Aspartate aminotransferase (AST) 27 U/L Normal 15-46 [facility] Comment on above: Performed By: #### H EMDF, CMP3, LIPA3 ####The performing lab is in the report. Bilirubin (total) 0.4 mg/dL Normal 0.2-1.3 [facility] Comment on above: Performed By: #### H EMDF, CMP3, LIPA3 ####The performing lab is in the report. CO2 28 mmol/L Normal 22-30 [facility] Comment on above: Performed By: #### H EMDF, CMP3, LIPA3 ####The performing lab is in the report. Creatinine 0.74 mg/dL Normal 0.52-1.25 [facility] Comment on above: Performed By: #### H EMDF, CMP3, LIPA3 ####The performing lab is in the report. eGFR (black) mL/min/{1.73_m2} Normal >60 [facility] Comment on above: Performed By: #### H EMDF, CMP3, LIPA3 ####The performing lab is in the report. eGFR (non-black) mL/min/{1.73_m2} Normal >60 [facility] Comment on above: Result Comment: Sour ce- MDRD equation with creatinine calibration to IDMS(NKDEP)eGFR not recommended for drug dose adjustment Performed By: #### H EMDF, CMP3, LIPA3 ####The performing lab is in the report. Protein 8.2 g/dL Normal 6.3-8.2 [facility] Comment on above: Performed By: #### H EMDF, CMP3, LIPA3 ####The performing lab is in the report. Urea nitrogen 8 mg/dL Normal 7-20 [facility] Comment on above: Performed By: #### H EMDF, CMP3, LIPA3 ####The performing lab is in the report. Potassium molar conc 3.9 mmol/L Normal 3.5-5.1 [facility] Comment on above: Performed By: #### H EMDF, CMP3, LIPA3 ####The performing lab is in the report. Sodium 142 mmol/L Normal 137-145 [facility] Comment on above: Performed By: #### H EMDF, CMP3, LIPA3 ####The performing lab is in the report. Albumin 4.6 g/dL Normal 3.5-5.0 [facility] Comment on above: Performed By: #### H EMDF, CMP3, LIPA3 ####The performing lab is in the report. Chloride 104 mmol/L Normal 98-107 [facility] Comment on above: Performed By: #### H EMDF, CMP3, LIPA3 ####The performing lab is in the report. HCG,Urine Qualon 01-30-2018 HCG.beta subunit ( test) Ql (U) Negative Normal Negative [facility] Comment on above: Result Comment: Preg joanne is the most common reason for HCG in urine, althoughchoriocarcinoma, hydatidiform mole, and certain nontropho-blastic malignancies also result in detectable urinary HCGlevels. Sensitivity = 20mIU/mL. Performed By: #### H CGUR, UAMAC ####The performing lab is in the report. Hemogram w/ Autodiffon 01-30 Abs Baso Cnt 0.0 10*3/uL Normal 0.0-0.2 [facility] Comment on above: Performed By: #### H EMDF, CMP3, LIPA3 ####The performing lab is in the report. Basophils/100 WBC Auto (Bld) 0.5 % Normal 0.0-2.0 [facility] Comment on above: Performed By: #### H EMDF, CMP3, LIPA3 ####The performing lab is in the report. Eosinophils 0.0 10*3/uL Normal 0.0-0.5 [facility] Comment on above: Performed By: #### H EMDF, CMP3, LIPA3 ####The performing lab is in the report. Eosinophils/100 leukocytes 0.0 % Low 1.0-6.0 [facility] Comment on above: Performed By: #### H EMDF, CMP3, LIPA3 ####The performing lab is in the report. Erythrocyte distribution width Auto Ratio (RBC) 15.6 % High 11.5-14.5 [facility] Comment on above: Performed By: #### H EMDF, CMP3, LIPA3 ####The performing lab is in the report. Erythrocytes (RBC) 4.89 10*6/uL Normal 3.80-5.20 [facility] Comment on above: Performed By: #### H EMDF, CMP3, LIPA3 ####The performing lab is in the report. Granulocytes/100 WBC (Bld) 71.3 % Normal 40.0-80.0 [facility] Comment on above: Performed By: #### H EMDF, CMP3, LIPA3 ####The performing lab is in the report. Hematocrit (HCT) 39.4 % Normal 35.0-47.0 [facility] Comment on above: Performed By: #### H EMDF, CMP3, LIPA3 ####The performing lab is in the report. Hemoglobin mass conc (Bld) 13.1 g/dL Normal 11.7-16.0 [facility] Comment on above: Performed By: #### H EMDF, CMP3, LIPA3 ####The performing lab is in the report. Lymphocytes 2.0 10*3/uL Normal 1.0-4.3 [facility] Comment on above: Performed By: #### H EMDF, CMP3, LIPA3 ####The performing lab is in the report. Lymphocytes/100 leukocytes 18.2 % Low 20.0-40.0 [facility] Comment on above: Performed By: #### H EMDF, CMP3, LIPA3 ####The performing lab is in the report. MCH 26.8 pg Normal 26.0-34.0 [facility] Comment on above: Performed By: #### H EMDF, CMP3, LIPA3 ####The performing lab is in the report. MCHC mass conc (RBC) 33.3 % Normal 32.0-36.0 [facility] Comment on above: Performed By: #### H EMDF, CMP3, LIPA3 ####The performing lab is in the report. MCV 80.5 fL Normal 79.0-98.0 [facility] Comment on above: Performed By: #### H EMDF, CMP3, LIPA3 ####The performing lab is in the report. Monocytes 1.1 10*3/uL High 0.0-0.8 [facility] Comment on above: Performed By: #### H EMDF, CMP3, LIPA3 ####The performing lab is in the report. Monocytes/100 leukocytes 10.0 % Normal 2.0-10.0 [facility] Comment on above: Performed By: #### H EMDF, CMP3, LIPA3 ####The performing lab is in the report. Neutrophils 7.7 10*3/uL High 1.8-7.0 [facility] Comment on above: Performed By: #### H EMDF, CMP3, LIPA3 ####The performing lab is in the report. Platelet mean volume (PMV) 7.4 fL Normal 7.4-10.4 [facility] Comment on above: Performed By: #### H EMDF, CMP3, LIPA3 ####The performing lab is in the report. Platelets 302 10*3/uL Normal 140-440 [facility] Comment on above: Performed By: #### H EMDF, CMP3, LIPA3 ####The performing lab is in the report. WBC (Leukocytes) 10.9 10*3/uL High 3.6-10.7 [facility] Comment on above: Performed By: #### H EMDF, CMP3, LIPA3 ####The performing lab is in the report. Lipaseon 01-30-2018 Lipase 118 [IU]/L Normal 23-300 [facility] Comment on above: Performed By: #### H EMDF, CMP3, LIPA3 ####The performing lab is in the report. Urinalysis,Macroon 8 Bilirubin (direct) Negative Normal Negative [facility] Comment on above: Performed By: #### H CGUR, UAMAC ####The performing lab is in the report. Ketone,Urine Negative Normal Negative [facility] Comment on above: Performed By: #### H CGUR, UAMAC ####The performing lab is in the report. Occult Blood,Ur Negative Normal Negative [facility] Comment on above: Performed By: #### H CGUR, UAMAC ####The performing lab is in the report. Specific [place],Urine 1.005 Normal 1.005-1.030 [facility] Comment on above: Performed By: #### H CGUR, UAMAC ####The performing lab is in the report. Total Protein,Urine Negative Normal Negative [facility] Comment on above: Performed By: #### H CGUR, UAMAC ####The performing lab is in the report. Urine, appearance clear Normal Clear [facility] Comment on above: Performed By: #### H CGUR, UAMAC ####The performing lab is in the report. Urine, color p. yel Normal Lt. Yellow [facility] Comment on above: Performed By: #### H CGUR, UAMAC ####The performing lab is in the report. Urine, glucose presence NORM Normal Negative [facility] Comment on above: Performed By: #### H CGUR, UAMAC ####The performing lab is in the report. Urine, nitrite presence Negative Normal Negative [facility] Comment on above: Performed By: #### H CGUR, UAMAC ####The performing lab is in the report. Urine, pH 7.0 [pH] Normal 5.0-8.0 [facility] Comment on above: Performed By: #### H CGUR, UAMAC ####The performing lab is in the report. Urine, urobilinogen NORM Normal 0-1 [facility] Comment on above: Performed By: #### H CGUR, UAMAC ####The performing lab is in the report. WBC (Leukocytes) Trace Normal Negative [facility] Comment on above: Performed By: #### H CGUR, UAMAC ####The performing lab is in the report. ED NOTEon 01-20-2018 ED NOTE HNO ID: [id number] thor: Cecilia Miranda (Rn) MANJEET Briscoeervice: Emergency MedicineAuthor Type: Registered NurseType: ED NotesFiled: 01/20/2018 2:45 AMNote Text: Patient instructed on administering self eye ointment. Patient verbalizedunderstanding. Patient has appointment next week with eye doctor already.Patient sent home with eye ointment and instructions on use by Dr Barclay. Normal [facility] ED PROV NOTEon 01-20-2018 ED PROV NOTE HNO ID: [id number] thor: Vernell Rocharvice: Emergency MedicineAuthor Type: PhysicianType: ED Provider NotesFiled: 01/20/2018 2:31 AMNote Text:ED Provider NotePatient Name: Juan A MontanezMRN: [id number] DATE: 01/20/18HistoryPatient presents with:Eye Injury: left eye injuryHPI Comments: 27-year-old female presents with left eye irritation,watering, injection, and foreign body sensation since noon today. Patientstates that she was helping her niece with a package of yogurt once in thepackage scratched her in the left eye. She's been having symptoms sincethat time. She denies any loss of vision or changes in vision. Shestates that she does not wear contact lenses but is supposed to wearglasses. She has no other complaints at this time. Izhrmrmcpmtebch-ae-hhpy.PAST MEDICAL HISTORYDiagnosis Date- AnxietyPAST SURGICAL HISTORYProcedure Laterality Date- NONEFAMILY HISTORYProblem Relation Age of Onset- PCOS [OTHER] Mother- Fibroids [OTHER] MotherSocial HistorySocial History Main Topics- Smoking status: Never Smoker- Smokeless tobacco: Current User Types: Chew- Alcohol use Yes Comment: social- Drug use: No- Sexual activity: Yes Partners: Female control/ protection: NoneALLERGIESNo Known AllergiesReview of SystemsConstitutional: Negative for chills, diaphoresis, fatigue and fever.HENT: Negative for congestion, ear pain, nosebleeds, rhinorrhea, sinuspressure, sore throat, tinnitus, trouble swallowing and voice change.Eyes: Positive for redness. Negative for photophobia, pain, discharge,itching and visual disturbance.Respiratory: Negative for cough, choking, chest tightness, shortness ofbreath and stridor.Cardiovascular: Negative for chest pain and palpitations.Gastrointestinal : Negative for abdominal distention, abdominal pain, bloodin stool, constipation, diarrhea, nausea and vomiting.Endocrine: Negative for polydipsia and polyuria.Genitourinary: Negative for difficulty urinating, dysuria, flank pain,frequency, hematuria and urgency.Musculoskeletal: Negative for arthralgias, back pain, gait problem,myalgias, neck pain and neck stiffness.Skin: Negative for color change and rash.Neurological: Negative for dizziness, tremors, syncope, speech difficulty,weakness, light-headedness, numbness and headaches.Hematological: Negative for adenopathy.Psychiatric/Behavi oral: Negative for confusion, hallucinations,self-injury and suicidal ideas. The patient is not nervous/anxious.Physical ExamBP 120/76 Pulse 76 Temp (Src) 97.5 (Temporal Artery) Resp 14 Ht 5'4 (1.63m) Wt 205 lb (93.0kg) SpO2 100% BMI 35.17 kg/(m2).Physical ExamConstitutional: She is oriented to person, place, and time. She appearswell-developed and well-nourished. Non-toxic appearance. No distress.HENT:Head: Normocephalic and atraumatic.Right Ear: External ear normal.Left Ear: External ear normal.Mouth/Throat: Oropharynx is clear and moist. No oropharyngeal exudate.Eyes: EOM are normal. Pupils are equal, round, and reactive to light.Right eye exhibits no discharge. Left eye exhibits no discharge. Noscleral icterus.The left eye conjunctiva is injected. There is mild clearish watering.There is no foreign body with eversion of the eyelids. With fluoresceinstaining, there is a corneal abrasion noted over the iris at the 2 o'clockposition.Neck: Normal range of motion. Neck supple. No JVD present. No trachealdeviation present.Cardiovascular: Normal rate, regular rhythm, normal heart sounds andintact distal pulses. Exam reveals no gallop and no friction rub.No murmur heard.Pulmonary/Chest: Breath sounds normal. No stridor. No respiratorydistress. She has no wheezes. She has no rales.Abdominal: Soft. Bowel sounds are normal. She exhibits no distension andno mass. There is no tenderness. There is no rebound and no guarding.Musculoskeletal: Normal range of motion. She exhibits no edema ortenderness.Lymphadenopathy: She has no cervical adenopathy.Neurological: She is alert and oriented to person, place, and time. Shehas normal reflexes. No cranial nerve deficit. She exhibits normal muscletone. Coordination normal.Skin: Skin is warm and dry. No rash noted.Psychiatric: She has a normal mood and affect. Her behavior is normal.Judgment and thought content normal.Nursing note and vitals reviewed.Diagnostic TestingED Labs Ordered and Reviewed - No data to displayProceduresMedical Decision Making / ED CourseED Course 27-year-old female presenting with left eye irritation. On exam, she hasa corneal abrasion at the 2 o'clock position. She denies any visiondisturbances or vision changes. She has complete relief with tetracaineeyedrop. We will treat her with bacitracin ophthalmic ointment, firstdose given here and dispensed for home. 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 I recommendthat she try to follow-up sooner. She was instructed to return forworsening or new symptoms. She is agreeable with plan.Encounter Diagnosis ICD-10-CM1. Abrasion of left cornea, initial encounter S05.02XAPlanThe Patient was DISCHARGED: Counseled patient regarding suspecteddiagnosis AND need for follow-up. Discharged home with verbal and writteninstructions. They were instructed to return as needed for persistent orworsening symptoms or any new concerns.Condition at time of disposition: stableSIGNATURE: Paul Rocha, DO01/20/18 0231 [facility] MRI BRAIN W/WO CONTRASTon MRI BRAIN W/WO CONTRAST Performed at [facility] APPROVED BY: Haider Maurice MD EXAMINATION: MRI BRAIN W/WO CONTRAST CLINICAL HISTORY: Elevated prolactin levels TECHNIQUE: MRI of the brain with attention to the sella turcica performed with and without contrastM: [id number]_[id number] COMPARISON: None. RESULT: Pituitary gland is normal in size, signal intensity, enhancement pattern and morphology. No evidence of a sellar or suprasellar mass.Sella turcica is not enlarged.Pituitary stalk and optic chiasm appear normal. Hypothalamus is unremarkable.Suprasellar cistern appears normal.Central skull base including the clivus appears unremarkable.Sphenoid sinus and the remainder of the visualized sinuses are clear.Visualized portion of the brain appears unremarkable IMPRESSION: Negative enhanced and nonenhanced MRI of the sella turcica Normal [facility] 12-12-2017 CNPN Telephone (AGOBGRN) --JUAN A MONTANEZ ([id number]) 1990 FDate Time Provider Department12/12/17 CECILIA FERNANDEZ During your visit today, we recorded the following information about you:Mine Acosta RN 12/12/2017 4:31 PM SignedPer [facility]-pt is scheduled for MRI of brain withoutcontrast-to evaluate the pituitary must have contrast. Please place new orderfor with and without contrast. Thank you.Mine Acosta RN 12/13/2017 11:46 AM SignedSpoke with insurance-amended tax ID for [facility]-[id number]. Prior authapproval remains same.Allergies As of Date: 12/12/2017(No Known Allergies)Date Reviewed: 10/24/2017Reviewed by: Cecilia Fernandez - Fully AssessedReason for Visit: Orders [681] Cmt: MRI-brainPrimary Visit Diagnosis:Hyperprolactinemia (HCC) [E22.1]Order(s):MRI BRAIN WO/W IVCON [[id number]] Order #: [id number] FUTURE iv contrast (radiology procedure)MRI Brain Inject, intravenously, once for 1 dose.No IV access, insert saline lock prior to beginning of sedation, infusion, injection of imaging exam.Discontinue saline lock post exam. If Pt. has a central line or IVAD, may access for administration according to line specific nursing protocol.Once exam is complete flush line and de-access according to line specific nursing protocol in the MR contrast administration guidelines linkDisp: 1 EachRfl: 0Prescriptions as of 12/12/2017 Sig: CLOTRIMAZOLE-BETAMETHASONE 1 * FLUCELVAX QUAD 7768-1770 (PF)* IV CONTRAST (RADIOLOGY PROCED* MRI Brain Inject, intravenous* CITALOPRAM 20 MG TABLET Take 20 mg by mouth once mateo*Problem List As Of Date 12/12/2017 Noted Resolved Hyperprolactinemia (HCC) [E22.1] INVALID FOR*Prescriptions ordered this encounter Disp Refills Start End IV CONTRAST (RADIOLOGY PROCEDURE) 1 Ea* 0 12/12/2017 12/13/2017 Class: In Office Sig: MRI Brain Inject, intravenously, once for 1 dose.No IV access, insert saline lock prior to beginning of sedation, infusion, injection of imaging exam.Discontinue saline lock post exam. If Pt. has a central line or IVAD, may access for administration according to line specific nursing protocol.Once exam is complete flush line and de-access according to line specific nursing protocol in the MR contrast administration guidelines linkEncounter Number: [id number] Status:Closed by CECILIA FERNANDEZ MD on 12/12/17 [facility] 11-28-2017 NORMA Telephone (TAJ) --JUAN A MONTANEZ ([id number]) 1990 FDate Time Provider Department11/28/17 CECILIA FERNANDEZ During your visit today, we recorded the following information about you:Mine Acosta RN 11/28/2017 1:36 PM SignedPt requesting prolactin results from 11/21/17 please.Cecilia Fernandez MD 11/28/2017 5:34 PM SignedProlactin remains elevated. MRI ordered.Mine Acosta RN 2017 11:44 AM SignedLeft mess. to call office.Mine Acosta RN 2017 12:03 PM SignedSpoke with pt-aware of results/recommendations. Will check with insurance forneed of prior auth for MRI without contrast.Mine Acosta RN 11/30/2017 4:12 PM SignedPrior auth required-initiated and pending.Mine Acosta RN 12/04/2017 11:14 AM SignedPrior auth still pending.Mine Acosta RN 12/05/2017 1:25 PM SignedInsurance requesting additional documentation for prior auth of MRI of brain.Office notes/labs faxed.Mine Acosta RN 12/06/2017 3:39 PM SignedSpoke with pt-aware prior auth approved. Scheduled for MRI of brain withoutcontrast 12/15/17 at 9am at [facility]. Directions provided.Allergies As of Date: 11/28/2017(No Known Allergies)Date Reviewed: 10/24/2017Reviewed by: Cecilia Fernandez - Fully AssessedReason for Visit: Results [95] Cmt: prolactinPrimary Visit Diagnosis:Elevated prolactin level (HCC) [E22.9] Other Visit Diagnosis:Secondary amenorrhea [N91.1]Order(s):MRI BRAIN WO IVCON [[id number]] Order #: [id number] FUTUREPrescriptions as of 11/28/2017 Sig: CITALOPRAM 20 MG TABLET Take 20 mg by mouth once mateo*Problem List As Of Date: 11/28/2017(None) Status:Closed by CECILIA FERNANDEZ MD on 11/28/17 [facility] Prolactinon 11-22-2017 Prolactin 71.5 ng/mL Normal [facility] Comment on above: Result Comment: Nonp regnant 2.8 to 29.2 9.7 to 208.5Postmenopausal 1.8 to 20.3Males: 2.1 to 17.7 Performed By: #### P ROL2 ####[facility] [place], [place] [address] CNNURSEon 11-21-2017 CNNURSE Nurse Visit (AGOBGRN) --JUAN A MONTANEZ ([id number]) 1990 FDate Time Provider Department11/21/17 9:00 AM NURSE OPHTHALMIC SURGEON PRAVEENA VANG During your visit today, we recorded the following information about you:Carlton Trimble CMA 11/21/2017 9:03 AM SignedOrders released. Carlton Trimble CMAReferring Provider: SELF [200]Allergies As of Date: 11/21/2017(No Known Allergies)Date Reviewed: 10/24/2017Reviewed by: Cecilia Fernandez - Fully AssessedReason for Visit: Phlebotomy [1172]Visit Diagnosis:Secondary amenorrhea [N91.1]Order(s):PROLACTIN BLD [SQPROL] Order #: [id number] as of 11/21/2017 Sig: CITALOPRAM 20 MG TABLET Take 20 mg by mouth once mateo*Problem List As Of Date: 11/21/2017(None)Visit Notes:>> Carlton Castro Nov 21, 2017 9:03 AM Status: SignedOrders released. Carlton Trimble CMAEncounter Number: [id number] Status:Closed by CARLTON TRIMBLE CMA on 11/21/17 [facility] CNCOon 11-08-2017 CNCO Letter Text Cecilia Fernandez MD [facility] Obstetrics AND [address] [address]Vwra: [phone] Zedlfxqp 2016Juan A Montanez1990Dear Juan A Montanez,A recent review of your clinical chart at [facility] [employer] IN[employer] has identifiedclinical issues that remain unaddressed. We have made attempts to notify youand resolve these issues, but have been unsuccessful.We feel that your gynecological health is best served by appropriate followup and would appreciate you contacting our office so that we can assure thatthese issues are appropriately handled.If you have chosen to seek another medical opinion or have these issuesaddressed elsewhere, a phone call would be most appreciated.Respectfully,[facility] [employer] INST[employer]ER [facility] Prolactinon 10-25-2017 Prolactin 64.8 ng/mL Normal [facility] Comment on above: Result Comment: Nonp regnant 2.8 to 29.2 9.7 to 208.5Postmenopausal 1.8 to 20.3Males: 2.1 to 17.7 Performed By: #### P ROL2 ####[place] [address] CNOVon 10-24-2017 CNOV Office Visit (AGOBGRN) --JUAN A MONTANEZ ([id number]) 1990 [facility] Time Provider [employer]20/12/17 1:00 PM CECILIA FERNANDEZ During your visit today, we recorded the following information about you: Blood pressure Weight Height 110/70 93 kg 1.6 Chema Trimble CMA 10/24/2017 1:17 PM SignedAbnormal periods she states she hasn't had one for about 2 months. Manny Grimm MD 10/24/2017 1:45 PM Signed? Please call the office before going to the hospital.? If you are , go to the ER at the [facility] [place]. Do not go tothe outlying ER?s ([facility], [facility] or [facility]).? If you need to go to an ER and cannot or will not go downtown, please use oneof [facility]?s ER?s (not [facility], [facility] or [facility]).Cecilia Fernandez MD 10/24/2017 2:04 PM Charanjit Montanez is a 26 year old female who presents for a well woman examSUBJECTIVEShe is here for her annual exam. Her menses were regular without heavybleeding or cramping until 2 months ago. She has not had her menses for thepast 2 months. She has no other CANVAS BASTER concerns today.Obstetric History T0 L0 SAB0 TAB0 Ectopic0 Multiple0 Live [id number] MEDICAL HISTORYDiagnosis Date- AnxietyPAST SURGICAL HISTORYProcedure Laterality Date- NONESocial HistorySubstance Use Topics- Smoking status: Never Smoker- Smokeless tobacco: Current User Types: Chew- Alcohol use Yes Comment: socialFAMILY HISTORYProblem Relation Age of Onset- PCOS [OTHER] Mother- Fibroids [OTHER] MotherOBJECTIVEALLERGIESNo Known AllergiesCurrent Outpatient Prescriptions:citalopram (CELEXA) 20 mg tablet Take 20 mg by mouth once daily.No current facility-administered medications for this visit.Review of SystemsConstitutional: NegativeCardiovascular: NegativeRespiratory: NegativeGastrointestinal: NegativeGenitourinary: NegativeSkin/breast: NegativePhysical ExamBP 110/70 Ht 5' 3ANDquot; (1.60m) Wt 205 lb (93.0kg) BMI 36.32 kg/(m2).General: No Acute Distress, Well nourished, Well developed, No obviousdeformities and Alert/Oriented x 3Mood/Affect: NormalHEENT: Normocephalic, Atraumatic and Grossly Within Normal LimitsCV: RRR and No murmursPulmonary: Clear to auscultation and Equal breath soundsGI: Abdomen soft, non-tender, no masses, Liver/spleen non-palpable, No herniasand Normoactive bowel soundsBreast: Symmetrical and No masses, tenderness, nipple dischargeGYN: Vulva - no lesions, skin intact with no discolorations, Vagina - nolesions, no discharge, normal color, Bartholin glands - no enlargement, notenderness, Cervix - no lesions, not friable, no CMT, Uterus - smooth,non-tender, no masses, anteverted and Adnexa - non-tender, no massesSkin: Intact, no lesionsEndocrine: Thyroid symmetrical, normal size, non-tenderLymph: No lymphadenopathy, neck axilla, groinASSESSMENT/PLAN:1. Well woman exam with routine gynecological exam - ICD9: V72.31, ICD10:Z01.419 (primary diagnosis)- Completed pelvic and breast exam- Encouraged monthly BSE- Follow up for annual exam in one year.2. Screening for cervical cancer - ICD9: V76.2, ICD10: Z12.4- Completed pap exam- Follow up for annual exam in one year.- PAP, CYTO GYN3. Screening for HPV (human papillomavirus) - ICD9: V73.81, ICD10: Z11.51- PAP, CYTO GYN4. Suppression, menstruation - ICD9: 626.8, ICD10: N94.89- T4/THYROXINE BLOOD- TSH BLD- PROLACTIN BLDMay need a Provera withdrawalCecilia Fernandez, MDReferring Provider: CECILIA FERNANDEZ [[id number]]Allergies As of Date: 10/24/2017(No Known Allergies)Date Reviewed: 10/24/2017Reviewed by: Cecilia Fernandez - Fully AssessedReason for Visit: Yearly Exam [187] Amenorrhea [276]Reason For Visit History RecordedPrimary Visit Diagnosis:Well woman exam with routine gynecological exam [Z01.419] Other Visit Diagnoses:Screening for cervical cancer [Z12.4] Screening for HPV (human papillomavirus) [Z11.51] Suppression, menstruation [N94.89]Order(s):PAP, CYTO CANVAS BASTER [[id number]] Order #: [id number] T4/THYROXINE BLOOD [SQT4] Order #: [id number] FUTURE TSH BLD [SQTSH] Order #: [id number] FUTURE PROLACTIN BLD [SQPROL] Order #: [id number] FUTUREPrescriptions as of 10/24/2017 Sig: CITALOPRAM 20 MG TABLET Take 20 mg by mouth once mateo*Medication notes this encounter CITALOPRAM 10 MG TABLET >> Carlton Trimble CMA 10/24/2017 1:16 PM >> CARLTON TRIMBLE CMA Oct 24, 2017 1:16 PM Not taking FLUCELVAX QUAD (PF) 60 MCG (15 MCG X 4)/0.5 ML IM SYRINGE >> Carlton Trimble CMA 10/24/2017 1:16 PM >> CARLTON TRIMBLE CMA karolyn Oct 24, 2017 1:16 PM ReceivedProblem List As Of Date: 10/24/2017(None) Other instructions from your clinician: ? Please call the office before going to the hospital. ? If you are , go to the ER at the [facility]. Do not go to the outlying ER?s ([facility], [facility] or [facility]). ? If you need to go to an ER and cannot or will not go downtown, please use one of [facility]?s ER?s (not [facility], [facility] or [facility]).Visit Notes:>> Carlton (Elias) Atilio karolyn Oct 24, 2017 1:16 PM Status: SignedAbnormal periods she states she hasn't had one for about 2 months. ELIAS GrimmMedications Discontinued During This Encounter FLUCELVAX QUAD , PF, 60 mcg* 09/23/2017 10/24/2017 Class: Historical Med Sig: Disc: Reason for discontinue is not on file. citalopram hydrobromide (CELEXA) 10 * 08/16/2017 10/24/2017 Class: Historical Med Sig: Disc: Reason for discontinue is not on file.Disposition: Return in about 1 year (around 10/24/2018).Follow-up and Disposition History RecordedEncounter Number: [id number] Status:Closed by CECILIA FERNANDEZ MD on 10/24/17 [facility] PROGRESSon 10-24-2017 PROGRESS HNO ID: [id number] thor: Cecilia Hernandez: (none)Author Type: PhysicianType: Progress NotesFiled: 10/24/2017 2:04 PMNote Text:Juan A Montanez is a 26 year old female who presents for a well woman examSUBJECTIVEShe is here for her annual exam. Her menses were regular without heavybleeding or cramping until 2 months ago. She has not had her menses forthe past 2 months. She has no other CANVAS BASTER concerns today.Obstetric History T0 L0 SAB0 TAB0 Ectopic0 Multiple0 Live Ijeyxy0NBOY MEDICAL HISTORYDiagnosis Date- AnxietyPAST SURGICAL HISTORYProcedure Laterality Date- NONESocial HistorySubstance Use Topics- Smoking status: Never Smoker- Smokeless tobacco: Current User Types: Chew- Alcohol use Yes Comment: socialFAMILY HISTORYProblem Relation Age of Onset- PCOS [OTHER] Mother- Fibroids [OTHER] MotherOBJECTIVEALLERGIESNo Known AllergiesCurrent Outpatient Prescriptions:citalopram (CELEXA) 20 mg tablet Take 20 mg by mouth once daily.No current facility-administered medications for this visit.Review of SystemsConstitutional: NegativeCardiovascular: NegativeRespiratory: NegativeGastrointestinal: NegativeGenitourinary: NegativeSkin/breast: NegativePhysical ExamBP 110/70 Ht 5' 3 (1.60m) Wt 205 lb (93.0kg) BMI 36.32 kg/(m2).General: No Acute Distress, Well nourished, Well developed, No obviousdeformities and Alert/Oriented x 3Mood/Affect: NormalHEENT: Normocephalic, Atraumatic and Grossly Within Normal LimitsCV: RRR and No murmursPulmonary: Clear to auscultation and Equal breath soundsGI: Abdomen soft, non-tender, no masses, Liver/spleen non-palpable, Nohernias and Normoactive bowel soundsBreast: Symmetrical and No masses, tenderness, nipple dischargeGYN: Vulva - no lesions, skin intact with no discolorations, Vagina - nolesions, no discharge, normal color, Bartholin glands - no enlargement, notenderness, Cervix - no lesions, not friable, no CMT, Uterus - smooth,non-tender, no masses, anteverted and Adnexa - non-tender, no massesSkin: Intact, no lesionsEndocrine: Thyroid symmetrical, normal size, non-tenderLymph: No lymphadenopathy, neck axilla, groinASSESSMENT/PLAN:1. Well woman exam with routine gynecological exam - ICD9: V72.31, ICD10:Z01.419 (primary diagnosis)- Completed pelvic and breast exam- Encouraged monthly BSE- Follow up for annual exam in one year.2. Screening for cervical cancer - ICD9: V76.2, ICD10: Z12.4- Completed pap exam- Follow up for annual exam in one year.- PAP, CYTO GYN3. Screening for HPV (human papillomavirus) - ICD9: V73.81, ICD10: Z11.51- PAP, CYTO GYN4. Suppression, menstruation - ICD9: 626.8, ICD10: N94.89- T4/THYROXINE BLOOD- TSH BLD- PROLACTIN BLDMay need a Provera withdrawalCecilia Fernandez MD [facility] Pap,Cyto Gynon 10-24-2017 Pap,Cyto General Production Laborer Test performed at [address] [address]QVRC: JUAN A MONTANEZ [id number] REQUESTING: CECILIA FERNANDEZ M.D.SPECIMEN: TP CX REFLEX TO HPV ASCUS/SILRelevant History:LMP: UnknownSPECIMEN ADEQUACYSATISFACTORY FOR EVALUATION.ENDOCERVICAL/TRANS FORMATION ZONE COMPONENTS PRESENT.PARTIALLY OBSCURING INFLAMMATION.INTERPRETATION/R ESULTNEGATIVE FOR INTRAEPITHELIAL LESION OR MALIGNANCY.Electronically signed: 11/10/2017Screened by: MICHAEL BELTRE(ASCP)Signed Out by: MICHAEL WERNER(ASCP)The Pap test serves as a screening tool for early detection of cervical cancer. The Pap test does not represent a final diagnostic test forcervical cancer. Furthermore, the Pap test was not designed to screenfor other malignancies (endometrial, ovarian cancer, etc....). Falsenegatives and false positives have occurred. If clinically indicated,further patient evaluation is recommended.Printed on: November 10, 2017 Page 1 of 1 [facility] Comment on above: Performed By: #### C YTOP ####[address] [address] T4,Bloodon 10-24-2017 T4,Blood 10.4 ug/dl Normal 4.7-13.3 [facility] Comment on above: Performed By: #### T 4 ####[address] [address] TSH, 3rd generationon 2016 TSH, 3rd generation 3.000 uIU/mL Normal 0.358-3.740 [facility] Comment on above: Performed By: #### T SH3 ####[address] [address] Vital Signs Date Time Vital Sign Value Performing Clinician Bipin carr 09-01-2023 06:31-0400 Body temperature 97.9 [degF] Galina Thomas DO Work Phone: [employer] 09-01-2023 06:31-0400 Diastolic blood pressure 79 mm[Hg] Galina Thomas DO Work Phone: [employer] 09-01-2023 06:31-0400 Heart rate 86 /min Galina Thomas DO Work Phone: [employer] 09-01-2023 06:31-0400 Respiratory rate 19 /min Galina Thomas DO Work Phone: [employer] 09-01-2023 06:31-0400 SaO2% (BldA) [Mass fraction] 100 % Galina Thomas DO Work Phone: [employer] 09-01-2023 06:31-0400 Systolic blood pressure 137 mm[Hg] Galina Thomas DO Work Phone: [facility] [employer] Encounters Encounter Date Encounter Type Care Provider Facility Start: 09-01-2023 End: 09-01-2023 Emergency department patient visit GALINA THOMAS [facility] [employer] [facility] Start: 09-01-2023 End: 09-01-2023 Emergency department patient visit Galina Thomas DO Work Phone: [facility] Comment on above: Flu-like symptoms (P rimary Dx) Start: 05-18-2018 End: 05-21-2018 Ambulatory RAIN GAMOBA [facility] Start: 02-27-2018 Emergency department patient visit CASSANDRA YANES [facility] Start: 02-16-2018 End: 02-16-2018 Ambulatory CECILIA FERNANDEZ [facility] Start: 02-12-2018 Ambulatory [facility] Start: 02-06-2018 Ambulatory Cassandra [facility] Start: 01-30-2018 Emergency department patient visit UNKNOWN PROVIDER [facility] Start: 01-20-2018 End: 01-20-2018 Emergency department patient visit GIL BARCLAY [facility] Start: 12-15-2017 Ambulatory CECILIA FERNANDEZ [facility] Start: 12-08-2017 Ambulatory CECILIA FERNANDEZ Facili ty:[facility] Start: 11-21-2017 End: 11-22-2017 Ambulatory [facility] Start: 11-17-2017 Ambulatory [facility] Facility:[facility] Start: 10-24-2017 End: 10-25-2017 Ambulatory CECILIA FERNANDEZ [facility] Plan of Treatment Date Care Activity Detail Author Start: 2040 Zoster Vaccines (1 of 2) Zoster Vacc arti (1 of 2) [facility] Start: 12-29-2026 DTaP/Tdap/Td Vaccine s (2 - Td or Tdap) DTaP/Tdap/Td Vaccines (2 - Td or Tdap) [facility] Start: 07-14-2023 Influenza vaccination Influenza Vacc ine (#1) [facility] Start: 2020 Screening for malign ant neoplasm of cervix [facility] Start: 2011 Screening for malign ant neoplasm of cervix Pap Smear [facility] Start: 2008 Hepatitis C screening Hepatitis C Sc reening [facility] Start: 2002 Depression Screening Depression Scre ening [facility] Start: 1991 MMR Vaccines (1 of 1 - Standard series) MMR Vaccines (1 of 1 - Standard series) [facility] Start: 1991 Varicella vaccination Varicell a Vaccines (1 of 2 - 2-dose childhood series) [facility] Start: 05-29-1991 COVID-19 Vaccine (#1) COVID-19 Vacci ne (#1) [facility] Start: 1990 Hepatitis B Vaccines (1 of 3 - 3-dose series) Hepatitis B Vaccines (1 of 3 - 3-dose series) [facility] Start: 1990 HIV screening HIV Screening [facility] Start: 1990 Lipid panel Lipid Panel [facility] Immunizations Immunization Date Immunization Notes Care Provider Fa stan 12-29-2016 tetanus toxoid, redu paco diphtheria toxoid, and acellular pertussis vaccine, adsorbed Galina Thomas DO Work Phone: [facility] Work Phone: Payers Date Payer Category Payer Policy ID Medicaid [id number] Unknown Social History Date Type Detail Facility Tobacco smoking status NHIS Never smoked tobacco [facility] Start: 09-01-2023 Alcohol intake Current drinke r of alcohol (finding) [facility] Start: 09-01-2023 History of Social function [facility] Start: 09-01-2023 Alcohol Use Disorder Identification Test - Consumption [AUDIT-C] [facility] How often to you hav e a drink containing alcohol? Monthly or less [facility] How many standard dr inks containing alcohol do you have on a typical day? 1 or 2 [facility] How often do you hav e 6 or more drinks on 1 occasion? Never [facility] Start: 1990 Sex Assigned At Not on file S [facility] Emergency department Note 09-01-2023 Galina Thomas DO - 09/01/2023 6:26 AM EDTRamses Trinh RN - 09/01/2023 6:26 AM EDT Note Date & Type Note Facility 09-01-2023 Emergency departm ent Note EMERGENCY DEPARTMENT ENCOUNTER Pt Name: Juan A Montanez Birthdate 1990 Date of evaluation: 09/01/2023 ED Provider: Galina Thomas DO CHIEF COMPLAINT Chief Complaint Patient presents with Flu Symptoms HISTORY OF PRESENT ILLNESS (Location/Symptom, Timing/Onset, Context/Setting, Quality, Duration, Modifying Factors, Severity) Note limiting factors. I wore appropriate PPE for the entirety of this encounter. HPI Juan A Montanez is a 32 y.o. female who presents to the emergency department with complaint of congestion, sore throat, cough, and intermittent chills for last 5 days. Sick contacts with similar symptoms. sick with similar symptoms. Denies chest pain or shortness of breath. Denies GI symptoms. Nursing Notes were reviewed. Limitations to history: None Outside historians: None REVIEW OF SYSTEMS Review of Systems Negative except per HPI PAST MEDICAL HISTORY Past Medical History: Diagnosis Date Anxiety IBS (irritable bowel syndrome) age 16 SURGICAL HISTORY Past Surgical History: Procedure Laterality Date WISDOM TOOTH EXTRACTION 2013 CURRENT MEDICATIONS There are no discharge medications for this patient. 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 Neck: no cervical LAD/full neck AROM, no TTP with laryngeal manipulation, no stridor CV: RRR, no murmurs Pulm: CTA BL DIAGNOSTIC RESULTS None EMERGENCY DEPARTMENT COURSE and DIFFERENTIAL DIAGNOSIS/MDM: Vitals: Vitals: 09/01/23 0631 BP: 137/79 Pulse: 86 Resp: 19 Temp: 36.6 C (97.9 F) SpO2: 100% 32-year-old female presenting with flulike illness for 5 days. Sick contacts with similar symptoms. Vital signs stable, afebrile. Saturating well on room air. Nontoxic-appearing patient. Resting comfortably. No increased work of breathing. Lungs clear bilaterally. Symptomology likely viral illness. Given endorsed symptoms, clear lungs, nontoxic appearance with likely viral etiology, chest x-ray not warranted. Patient reassured and advised to take [id number]-dzndosp NyQuil/DayQuil. Patient expressed understanding and patient discharged. PROCEDURES: Unless otherwise noted below, none Procedures FINAL IMPRESSION 1. Flu-like symptoms DISPOSITION Discharge 09/01/2023 06:40:49 AM PATIENT REFERRED TO: [address] [address] DISCHARGE MEDICATIONS: There are no discharge medications for this patient. (Comment: Please note this report has been produced using speech recognition software and may contain errors related to that system including errors in grammar, punctuation, and spelling, as well as words and phrases that may be inappropriate. If there are any questions or concerns please feel free to contact the dictating provider for clarification.) Galina Thomas, (electronically signed) Emergency Medicine Provider Galina Thomas DO 09/01/23 0657 Pt comes to ED due to cough, runny nose x3 days pt states cough has been increasing in severity today. documented in this encounter [facility] Emergency department Triage note 09-01-2023 Ramses Trinh RN - 09/01/2023 6:26 AM EDT Note Date & Type Note Facility 09-01-2023 Emergency departm ent Triage note Pt comes to ED due to cough, runny nose x3 days pt states cough has been increasing in severity today. [facility] Physician Emergency department Note 09-01-2023 Galina Thomas DO - 09/01/2023 6:26 AM EDT Note Date & Type Note Facility 09-01-2023 Physician Emergen cy department Note EMERGENCY DEPARTMENT ENCOUNTER Pt Name: Juan A Montanez Birthdate 1990 Date of evaluation: 09/01/2023 ED Provider: Galina Thomas DO CHIEF COMPLAINT Chief Complaint Patient presents with Flu Symptoms HISTORY OF PRESENT ILLNESS (Location/Symptom, Timing/Onset, Context/Setting, Quality, Duration, Modifying Factors, Severity) Note limiting factors. I wore appropriate PPE for the entirety of this encounter. HPI Juan A Montanez is a 32 y.o. female who presents to the emergency department with complaint of congestion, sore throat, cough, and intermittent chills for last 5 days. Sick contacts with similar symptoms. sick with similar symptoms. Denies chest pain or shortness of breath. Denies GI symptoms. Nursing Notes were reviewed. Limitations to history: None Outside historians: None REVIEW OF SYSTEMS Review of Systems Negative except per HPI PAST MEDICAL HISTORY Past Medical History: Diagnosis Date Anxiety IBS (irritable bowel syndrome) age 16 SURGICAL HISTORY Past Surgical History: Procedure Laterality Date WISDOM TOOTH EXTRACTION 2013 CURRENT MEDICATIONS There are no discharge medications for this patient. 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 Neck: no cervical LAD/full neck AROM, no TTP with laryngeal manipulation, no stridor CV: RRR, no murmurs Pulm: CTA BL DIAGNOSTIC RESULTS None EMERGENCY DEPARTMENT COURSE and DIFFERENTIAL DIAGNOSIS/MDM: Vitals: Vitals: 09/01/23 0631 BP: 137/79 Pulse: 86 Resp: 19 Temp: 36.6 C (97.9 F) SpO2: 100% 32-year-old female presenting with flulike illness for 5 days. Sick contacts with similar symptoms. Vital signs stable, afebrile. Saturating well on room air. Nontoxic-appearing patient. Resting comfortably. No increased work of breathing. Lungs clear bilaterally. Symptomology likely viral illness. Given endorsed symptoms, clear lungs, nontoxic appearance with likely viral etiology, chest x-ray not warranted. Patient reassured and advised to take sqzw-iru-qzbdryd NyQuil/DayQuil. Patient expressed understanding and patient discharged. PROCEDURES: Unless otherwise noted below, none Procedures FINAL IMPRESSION 1. Flu-like symptoms DISPOSITION Discharge 09/01/2023 06:40:49 AM PATIENT REFERRED TO: [address] [address] DISCHARGE MEDICATIONS: There are no discharge medications for this patient. (Comment: Please note this report has been produced using speech recognition software and may contain errors related to that system including errors in grammar, punctuation, and spelling, as well as words and phrases that may be inappropriate. If there are any questions or concerns please feel free to contact the dictating provider for clarification.) Galina Thomas DO (electronically signed) Emergency Medicine Provider Galina Thomas DO 09/01/23 0657 [facility] Evaluation note Note Date & Type Note Facility Evaluation note Diagnosis Flu-like symptoms- Primary documented in this encounter [facility] Summary Purpose Family History No Family History Records FoundNo Family History Records FoundNo Family History Records FoundNo Family History Records FoundNo Family History Records FoundNo Family History Records Found Advance Directives No Advanced Directives Records FoundNo Advanced Directives Records FoundNo Advanced Directives Records FoundNo Advanced Directives Records FoundNo Advanced Directives Records FoundNo Advanced Directives Records Found Additional Source Comments INFORMATION SOURCE (unrecogn ized section and content) DATE CREATED AUTHOR 05/03/2018 [facility] [employer] DATE CREATED AUTHOR AUTHOR'S ORGANIZ ATION 05/03/2018 [facility] DATE CREATED AUTHOR AUTHOR'S ORGANIZ ATION 05/03/2018 [facility] DATE CREATED AUTHOR AUTHOR'S ORGANIZ ATION 05/04/2018 [facility] [employer] DATE CREATED AUTHOR AUTHOR'S ORGANIZ ATION 05/21/2018 [facility] DATE CREATED AUTHOR AUTHOR'S ORGANIZ ATION 09/02/2023 [facility] [employer] [facility] Reason for Visit (unrecogniz ed section and content) Reason Comments Flu Symptoms FOR RECORDS PERTAINING TO PATIENTS WHO ARE OR HAVE BEEN ENROLLED IN A CHEMICAL DEPENDENCY/SUBSTANCEABUSE PROGRAM, SOME INFORMATION MAY BE OMITTED. This clinical summary was aggregated from multiple sources. Caution should be exercised in using it in the provision of clinical care. This summary normalizes information from multiple sources, and as a consequence, information in this document may materially change the coding, format and clinical context of patient data. In addition, data may be omitted in some cases. CLINICAL DECISIONS SHOULD BE BASED ON THE PRIMARY CLINICAL RECORDS. [employer] provides no warranty or guarantee of the accuracy or completeness of information in this document.
--- NOTE | 2025-08-02 16:18 | CM.ED ---
Social Work Date of referral: 08/02/2025 Reason for referral: No primary care physician (PCP) on file. Referred by: Social Work Identification Patient provided consent for social work visit. Fishing Rod Mechanic provided a written handout to the [facility] which patient accepted and expressed appreciation for. Shayna Kowalski, PRIVATE DUTY NURSE, VIDEO ARCADE MANAGER
[2025-08-02 16:25] VITALS: BP 140/75; PULSE 70; RESP 16; TEMP 36.5; O2SAT 99
== END 2025-08-02 16:26 | disposition home or self-care (01) ==
PROVIDERS: Emergency Provider Emergency Medicine; Visit Provider Emergency Medicine
DX: M79.661 Pain in right lower leg (principal); Z87.891 Personal history of nicotine dependence
CPT/HCPCS: 73590; 99282